=== PATIENT | female | born 1955 | race Caucasian/White ===

== ENCOUNTER 2024-06-26 12:28 | Day surgery (SDC) | payer MEDICARE, SELFPAY ==
[2024-06-26 13:09] VITALS: BP 134/59; PULSE 73; RESP 17; TEMP 36.8; O2SAT 99; BMI 30.2
[2024-06-26] MEDS: LACTATED RINGERS 1000ML 1,000 ML 50 ML IV (13:18)
--- NOTE | 2024-06-26 13:29 | EXP.ANES.CKL ---
[facility] Disclaimer: The information contained in this section may have been updated after the patient was seen, as this information can be updated by other users. Medical History Menopause Anxiety Hypothyroid Hyperlipidemia Throat cancer Surgical History History of tonsillectomy S/P percutaneous endoscopic gastrostomy (PEG) tube placement Family History Sister Colon cancer Family history of diabetes mellitus type II Brother Lung cancer Family history of diabetes mellitus type II Mother Family history of acute congestive heart failure Father Family history of acute congestive heart failure Sister Family history of acute congestive heart failure Social History Smoking Status: Never smoker alcohol intake: former substance use type: unknown current occupational status: retired Travel in the last 8 weeks?: None [facility] Anesthesia Checklist Patient Identification Patient Identification: Arm Band and Verbal (Name & ) Structural Data Admitted From: Home Planned Operative Procedure/s: colonscopy Consent for Planned Operative Procedure(s) Verified: Yes Verified Documents: Surgical Consent and History and Physical NPO Status Verified Time NPO: 00:00 Additional verifications Anesthesia Reactions: No Airway Assessment Mallampati Score:: Class II Dentition: Edentulous Neurological Assessment Level of Consciousness: Awake, Alert and Appropriate Hx Seizures: No Anesthesia Plan Anesthesia Risk discussed: Yes Anesthesia Plan: Verified ASA Class: II Anesthesia Type: MAC
[2024-06-26 13:34] VITALS: O2SAT 98
--- NOTE | 2024-06-26 13:36 | P.HP_ITS ---
History of Present Illness *Admission Date: 06/26/24 *Reason for visit:: Screening/surveillance colonoscopy *History of present illness: Mrs. Amado is a 69-year-old female who is here for screening/surveillance colonoscopy. Her last colonoscopy was about 15 years ago. Her sister had colon cancer at the age of 42. The examination is deemed medically necessary for screening/surveillance colonoscopy. The patient has been seen, interviewed and examined prior to the procedure by both myself and the anesthesia provider. [facility] Disclaimer: The information contained in this section may have been updated after the patient was seen, as this information can be updated by other users. Medical History Menopause Anxiety Hypothyroid Hyperlipidemia Throat cancer Surgical History History of tonsillectomy S/P percutaneous endoscopic gastrostomy (PEG) tube placement Family History Sister Colon cancer Family history of diabetes mellitus type II Brother Lung cancer Family history of diabetes mellitus type II Mother Family history of acute congestive heart failure Father Family history of acute congestive heart failure Sister Family history of acute congestive heart failure Social History (Updated 06/26/24 @ 13:30 by Rossi Lai CRNA) Smoking Status: Never smoker alcohol intake: former substance use type: unknown current occupational status: retired Travel in the last 8 weeks?: None Have you lived/traveled outside US in past 30 days?: No Contact w/someone who lives/traveled outside US past 30 days?: No Exposure to someone with infectious disease in past 14 days?: No Do you have a fever (greater than 100.4 F or 38 C)?: No Have you tested positive for COVID-19?: No Exposed to someone with COVID-19 in past 14 days?: No Do you have a sore throat?: No Do you have a cough?: No Do you have any weakness?: No Are you experiencing any nausea/vomitting?: No Do you have any diarrhea?: No Are you experiencing any unusual bleeding?: No Do you have any muscle aches/pain?: No Do you have any abdominal pain?: No Are you experiencing loss of taste or smell?: No Review of Systems Review of Systems Review of systems (narrative): Negative *Cardiovascular Comments: Negative *Gastrointestinal Comments: Negative *Genitourinary Comments: Negative *Musculoskeletal Comments: Negative *Neurologic Comments: Negative Meds Home Medications and Allergies Home Medications ?Medication ?Instructions ?Recorded ?Confirmed ?Type levothyroxine 100 mcg tablet 100 mcg PO DAILY 06/26/24 06/26/24 History trazodone 50 mg tablet 50 mg PO HS 06/26/24 06/26/24 History New Prescriptions to Start Prescriptions: Allergies Allergy/AdvReac Type Severity Reaction Status Date / Time No Known Allergies Allergy Verified 06/26/24 13:02 Exam Data for Last 24 hours Vital signs and Labs for Last 24 Hours: Temp Pulse Resp BP Pulse Ox O2 Del Method O2 Flow Rate 98.2 F 73 17 134/59 L 99 Nasal Cannula 5 06/26/24 13:09 06/26/24 13:09 06/26/24 13:09 06/26/24 13:09 06/26/24 13:09 06/26/24 13:34 06/26/24 13:34 I & O for Last 24 hours: Intake & Output 06/23/24 06/24/24 06/25/24 06/26/24 23:59 23:59 23:59 23:59 Weight 165 lb *Routine HEENT Exam Head: Present normocephalic Eye: Present EOMI and PERRL ENT: Present mucous membranes moist *Routine Neck Exam Neck: Present supple *Routine Respiratory Exam Respiratory: Present CTA bilaterally *Routine Cardiovascular Exam Cardiovascular: Present RRR *Routine Abdominal Exam Abdominal: Present soft and normoactive bowel sounds; Absent tenderness *Routine Rectal Exam Rectal:: deferred *Routine Genitalia Exam Genitalia:: deferred *Routine Extremities Exam Extremities: Absent cyanosis, clubbing or edema *Routine Skin Exam Skin: Present warm; Absent rash *Routine Neurological Exam Neurological: Present alert and oriented X3 Assessment and Plan *Assessment and plan (1) Family history of colon cancer: Status: Acute Category: Medical Code(s): Z80.0 - Family history of malignant neoplasm of digestive organs (2) Screening for colon cancer: Status: Acute Category: Medical Code(s): Z12.11 - Encounter for screening for malignant neoplasm of colon Plan A/P: 1. Screening for colon cancer and strong family history (sister with colon cancer at age 42 is the preprocedural diagnosis. The patient will be anesthetized/sedated using MAC sedation. The patient has been seen and examined. Cardiac and lung assessment prior to the examination is stable. Proceed with planned screening/surveillance colonoscopy.
--- NOTE | 2024-06-26 13:40 | HMH.PROCNOTE ---
[facility] Procedure Note Date: 06/26/24 Time: 13:56 Procedure Note:: Colonoscopy Procedure Report: Colonoscopy with cold snare polypectomy Endoscopist: Misael Zepeda II, MD Referring physician: SONIA Dillard, [address] [place] [address] , [place] [address] Date of Procedure: June 26, 2024 Equipment: Olympus 190 variable stiffness pediatric colonoscope Sedation: MAC sedation Indication: Mrs. Amado is a 69-year-old female who is here for follow-up screening/surveillance colonoscopy. She does state that her last colonoscopy was about 15 years ago. Her sister had colon cancer at the age of 42. The patient reports no abdominal pain, weight loss or rectal bleeding. She does have some intermittent IBS?D with diarrhea couple of times weekly and has moderate gassiness. She reports no bloating. Procedure: Prior to the procedure, a history and physical exam was performed, and patient's medications and allergies were reviewed. The risks, benefits and alternatives of the sedation and procedure were discussed with the patient. All questions were answered and informed consent was obtained. The patient was brought to the procedure room. Patient identification and proposed procedure were verified by the physician and the nurse. The patient was placed in a left lateral decubitus position and the scope was passed under direct vision. Throughout the procedure, the patient's blood pressure, pulse, and oxygen saturations were monitored continuously. The colonoscopy was accomplished without difficulty. The patient tolerated the procedure well. Findings: On digital rectal examination there was normal rectal tone. There were no external hemorrhoids. The colonoscope was introduced through the anal canal to the rectum and advanced to the cecum. The ileocecal valve and appendiceal orifice were identified. The scope was advanced a short distance into the ileum which appeared grossly normal. The scope was then withdrawn into the colon. There were 7 colon polyps (cecum x 2 (4 and 8 mm), ascending x 2 (4 and 7 mm), transverse x 1 (5 mm) and descending x 2 (4 and 5 mm)). These were all removed via cold snare polypectomy. The remaining cecum, ascending and transverse colon and mucosa were grossly normal. There were scattered diverticuli throughout the descending and sigmoid colon (LEFT colon). The rectum itself was normal. Upon retroflexion within the rectum there were grade 1-2 internal hemorrhoids. The preparation was excellent throughout with Monroe Preparation Score of 9. The cecal time was 15 minutes. Impression: 1. Diminutive colonic polyps x 7 2. Left-sided diverticulosis 3. Grade 1-2 internal hemorrhoids Plan: I will follow-up the polyp histology and recommend repeat surveillance colonoscopy again in 3 years based upon the number of adenomatous polyps and family history. I would encourage psyllium bulking fiber supplementation on a maintenance basis.
[2024-06-26 14:02] VITALS: BP 116/49; PULSE 67; RESP 16; TEMP 36.1; O2SAT 100
[2024-06-26 14:12] VITALS: BP 122/73; PULSE 72; RESP 18; O2SAT 100
[2024-06-26 14:22] VITALS: BP 112/58; PULSE 64; RESP 17; O2SAT 100
[2024-06-26 14:32] VITALS: BP 148/70; PULSE 67; RESP 18; O2SAT 100
== END 2024-06-26 14:50 | disposition home or self-care (01) ==
PROVIDERS: PCP Nurse Practitioner Family; Visit Provider Internal Medicine Gastroenterology
PROC: 0DJD8ZZ Inspection of Lower Intestinal Tract, Via Natural or Artificial Opening Endoscopic (ICD-10-PCS; CPT 45378; principal; 2024-06-26 14:00)
DX: Z12.11 Encounter for screening for malignant neoplasm of colon (principal); Z80.0 Family history of malignant neoplasm of digestive organs; R14.0 Abdominal distension (gaseous); R19.7 Diarrhea, unspecified; D12.2 Benign neoplasm of ascending colon; D12.0 Benign neoplasm of cecum; D12.4 Benign neoplasm of descending colon; D12.3 Benign neoplasm of transverse colon; K57.30 Diverticulosis of large intestine without perforation or abscess without bleeding; K64.8 Other hemorrhoids
CPT/HCPCS: 45385; 88305; J7120

== ENCOUNTER 2024-08-28 15:25 | Outpatient (CLI) | payer MEDICARE, SELFPAY ==
[2024-08-28 15:32] VITALS: BMI 28.3
--- NOTE | 2024-08-28 15:32 | XR_ITS ---
FINAL REPORT CLINICAL HISTORY: pre-operative exam ; biopsy on tongue FINDINGS: No acute pulmonary density is evident. There is no evidence of effusion or other pleural disease. The mediastinum has a normal appearance. The cardiac silhouette is unremarkable. IMPRESSION: Unremarkable chest exam. Reviewed, Interpreted and Dictated by Miranda Street MD Transcribed by Kait Dempsey Authenticated and [facility]
--- NOTE | 2024-08-28 15:49 | ECG_ITS ---
APPROVED REPORT Exam: Resting ECG HR:63 bpm ECG Measurements Heart Rate 63 AXES IN 158 P 75 QRSd 109 QRS -23 QT 395 T 37 QTc 403 Conclusion SINUS RHYTHM BORDERLINE LEFT AXIS DEVIATION [QRS AXIS < -20] BORDERLINE ECG UNCONFIRMED REPORT Electronically signed by : Scott Newell MD 09/02/2024 08:02:03
[2024-08-28 16:15] LABS: Hematocrit 37.9 % (37.0-47.0); Hemoglobin 12.5 g/dL (12.2-16.2); Mean Corpuscular HGB Conc 33.0 g/dL (31.8-35.4); Mean Corpuscular Hemoglobin 27.8 pg (27.0-31.2); Mean Corpuscular Volume 84.4 fl (81-99); Platelet Count 167 K/mm3 (142-424); Red Blood Count 4.49 M/mm3 (4.20-5.40); White Blood Count 4.5 K/mm3 (4.8-10.8)
[2024-08-28 16:25] LABS: Blood Urea Nitrogen 10 mg/dl (7-17); Calcium 10.0 mg/dl (8.4-10.2); Carbon Dioxide 26 mmol/L (22.0-30.0); Creatinine Clearance Estimated 58 mL/min (50-200); Creatinine,Serum 1.00 mg/dl (0.52-1.04); Estimated Glomerular Filt Rate 55 ml/min (>60); GFR (African American) 66 ML/MIN (>60); Glucose 92 mg/dl (74-100); Potassium 3.8 mmoL/L (3.5-5.1); Sodium 134 mmol/L (136-145)
[2024-08-28 17:14] LABS: Anion Gap 10.8 mEq/L (5-15); Chloride 101 mmol/L (98-107)
[2024-08-28 17:44] LABS: Total Cells Counted 100
[2024-08-28 17:48] LABS: RBC Morphology Normal
== END 2024-08-28 23:59 | disposition home or self-care (01) ==
LOC: PREOP 15:25
PROVIDERS: PCP Nurse Practitioner Family; Visit Provider Student in an Organized Health Care Education/Training Program
DX: Z01.810 Encounter for preprocedural cardiovascular examination (principal); Z01.811 Encounter for preprocedural respiratory examination; Z01.812 Encounter for preprocedural laboratory examination; R94.31 Abnormal electrocardiogram [ECG] [EKG]
CPT/HCPCS: 71046; 80048; 85007; 85014; 85018; 85048; 85049; 93005

== ENCOUNTER 2024-09-03 06:02 | Day surgery (SDC) | payer MEDICARE, SELFPAY ==
[2024-08-30 06:52] VITALS: BMI 28.3
[2024-09-03] VITALS (13 sets, daily range): BP systolic 135–195; BP diastolic 71–87; PULSE 63–74; RESP 14–18; TEMP 36.1–36.4; O2SAT 95–100; BMI 28.3
[2024-09-03] MEDS: LACTATED RINGERS 1000ML 1,000 ML 25 ML IV (06:41)
--- NOTE | 2024-09-03 07:13 | P.PNANES_ITS ---
[facility] Disclaimer: The information contained in this section may have been updated after the patient was seen, as this information can be updated by other users. Medical History Menopause Anxiety Hypothyroid Hyperlipidemia Throat cancer Surgical History History of tonsillectomy S/P percutaneous endoscopic gastrostomy (PEG) tube placement Family History Sister Colon cancer Family history of diabetes mellitus type II Brother Lung cancer Family history of diabetes mellitus type II Mother Family history of acute congestive heart failure Father Family history of acute congestive heart failure Sister Family history of acute congestive heart failure Social History (Updated 09/03/24 @ 06:23 by Kamille Rice RN) Smoking Status: Never smoker alcohol intake: former substance use type: unknown current occupational status: retired Travel in the last 8 weeks?: None Have you lived/traveled outside US in past 30 days?: No Contact w/someone who lives/traveled outside US past 30 days?: No Exposure to someone with infectious disease in past 14 days?: No Do you have a fever (greater than 100.4 F or 38 C)?: No Have you tested positive for COVID-19?: No Exposed to someone with COVID-19 in past 14 days?: No Do you have a sore throat?: No Do you have a cough?: No Do you have any weakness?: No Do you have any diarrhea?: No Are you experiencing any unusual bleeding?: No Do you have any muscle aches/pain?: No Do you have any abdominal pain?: No Are you experiencing loss of taste or smell?: No [facility] Anesthesia Checklist Patient Identification Patient Identification: Arm Band and Verbal (Name & ) Structural Data Admitted From: Home Planned Operative Procedure/s: Laryngoscopy, tongue biopsy Consent for Planned Operative Procedure(s) Verified: Yes Verified Documents: Surgical Consent NPO Status Verified Time NPO: 00:00 Chart Verification Results Verified: ECG Additional verifications Anesthesia Reactions: No Hx Blood Transfusions: No Blood Transfusion Reaction: No Airway Assessment Mallampati Score:: Class II C-Spine Mobility Assessed: Yes TMJ Mobility Assessed: Yes Dentition: Edentulous Neurological Assessment Level of Consciousness: Awake, Alert and Appropriate Hx Seizures: No Numbness or tingling in extremities: No Anesthesia Plan Anesthesia Risk discussed: Yes Anesthesia Plan: Verified ASA Class: II Anesthesia Type: General
[2024-09-03] MEDS: OXYMETAZOLINE NASAL SPRAY 0.05% 15ML 15 ML NS (08:15)
--- NOTE | 2024-09-03 08:41 | P.OP_ITS ---
Date of procedure: 09/03/24 Pre-op Diagnosis:: right base of tongue biopsy Post-op Diagnosis:: same Procedure performed:: direct laryngocsopy with biopsy Surgeon:: Gilbert Cordoba MD Anesthesia: GETA Estimated blood loss (mL): 5 Operative findings:: firm right base of tongue mass Operative note:: The patient was brought to the OR, laid in the supine position, and general anesthesia was induced. Patient was prepped and draped in usual fashion. On manual palpation she was felt to have a firm right base of tongue mass. I inserted the anterior commissure laryngoscope. There is no obvious glottic, supraglottic, or hypopharyngeal lesions. Patient has a history of a previous tonsillectomy. There was visible friable tissue in the right base of tongue in the location of the palpated firm mass. Using the up-biting forceps numerous biopsies of the firm mass were taken and sent for permanent pathology. Afrin- soaked pledgets were used to achieve hemostasis. These were all then removed. Counts were confirmed correct. She was then turned back over to anesthesia to be awoken and extubated. Condition: stable Disposition: PACU Complications:: none
--- NOTE | 2024-09-03 08:52 | P.PNANES_ITS ---
[facility] Anesthesia Record Part I Anesthesia Record I Intake, IV Amount: 600 Hydration: Adequate Estimated blood loss (mL): 0 Urine output (mL): 0 Blood Products used (#): none Blood Pressure: 150/77 SaO2: 98 Pulse Rate: 74 Airway Patency: Patent Respiratory Rate: 14 Temperature: 97.0 F Patient is:: Drowsy, Nasal O2 and Stable
--- NOTE | 2024-09-03 09:21 | SUR.PHASEI ---
0918- detailed report given to richard bryan in post op. Notified richard bryan of BP being elevated, and that hilario yo was aware and no further orders at this time.
[2024-09-03] MEDS: LABETALOL 20MG/4ML SYRINGE 10 MG IV (09:35)
--- NOTE | 2024-09-03 09:37 | P.PNANES_ITS ---
[facility] Anesthesia Record Part II Anesthesia Record Part II Discharge Time: 09:18 Destination: Surgical Day Care (OP Surgery) PACU nurse assessment reviewed?: Yes Patient Condition:: Good Anesthesia Complications:: None Swallowing reflex intact?: Yes Airway Patency: Patent Cyanosis?: No Blood Pressure: 194/73 SaO2: 97 Respiratory Rate: 16 Pulse Rate: 65 Temperature: 97.3 F Mental Status: Alert & Oriented Pain level:: 0 Nausea and/or vomitting:: None Intake, IV Amount: 0 Hydration: Adequate
== END 2024-09-03 10:06 | disposition home or self-care (01) ==
PROVIDERS: PCP Nurse Practitioner Family; Visit Provider Student in an Organized Health Care Education/Training Program
PROC: 0CBS8ZX Excision of Larynx, Via Natural or Artificial Opening Endoscopic, Diagnostic (ICD-10-PCS; CPT 31525; principal; 2024-09-03 08:00)
DX: C01 Malignant neoplasm of base of tongue (principal); F41.9 Anxiety disorder, unspecified; E03.9 Hypothyroidism, unspecified; E78.5 Hyperlipidemia, unspecified; Z85.818 Personal history of malignant neoplasm of other sites of lip, oral cavity, and pharynx; Z90.89 Acquired absence of other organs; Z79.890 Hormone replacement therapy; Z79.899 Other long term (current) drug therapy; Z86.19 Personal history of other infectious and parasitic diseases; Z92.21 Personal history of antineoplastic chemotherapy; Z92.3 Personal history of irradiation
CPT/HCPCS: 31525; 41105; J1100; J1920; J2003; J2405; J2704; J3010; J7120